=== PATIENT | male | born 1980 | race Caucasian/White ===

== ENCOUNTER 2018-12-04 16:09 | Emergency (ER) | payer SELFPAY ==
[~2018-12-04] VITALS: Ht 172.7 cm; Wt 113.9 kg
[2018-12-04 16:15] VITALS: BP 145/74; PULSE 103; RESP 18; Ht 172.7 cm; Wt 113.9 kg
[2018-12-04] MEDS ORDERED: TRIA15CR55 TOP (20:11)
[2018-12-04] MEDS ORDERED: NAPR-985 PO (20:11)
--- NOTE | 2018-12-04 20:34 | ERD ---
ER Documentation Chief Complaint Chief Complaint left ankle and foot pain x 1 month HPI 38-year-old male presents to the emergency department complaining of constant, moderate to severe left heel and ankle pain which is worse with walking starting 1 month ago. He went to [facility] emergency department 4 days ago and had x- rays of the left foot and left ankle which showed "bone spurs". He states there were no fractures noted. He has tried no medication for relief of symptoms. He denies any other symptoms or injuries at this time. ROS All systems reviewed and are negative except as per history of present illness. Medications Home Meds Active Scripts Triamcinolone Acetonide (Triamcinolone Acetonide) 0.1% - 15 Gm Cream.gm., 1 APPLIC TOP BID, #1 TUB Prov:YOANDY ROSAS PA-C 12/04/18 Naproxen* (Naprosyn*) 500 Mg Tablet, 500 MG PO BID PRN for PAIN AND/OR INFLAMMA TION, #30 TAB Prov:YOANDY ROSAS PA-C 12/04/18 PMhx/Soc Medical and Surgical Hx: pt denies Medical Hx, pt denies Surgical Hx Hx Alcohol Use: No Hx Substance Use: No Hx Tobacco Use: No Smoking Status: Never smoker FmHx Family History: No diabetes Physical Exam Vitals Vital Signs Date Temp Pulse Resp B/P (MAP) Pulse Ox O2 O2 Flow FiO2 Time Delivery Rate 12/04/18 97.8 103 18 145/74 96 16:15 (97) Physical Exam Const: No acute distress Head: Atraumatic Eyes: Normal Conjunctiva ENT: Normal External Ears, Nose and Mouth. Neck: Full range of motion. No meningismus. Resp: No respiratory distress. Skin: No petechiae or rashes Ext: Macular erythematous appearing rash noted to the plantar surface of the left foot. Tenderness palpation of the left heel. No obvious deformities. Patient is neurovascularly intact to the left lower extremity. Full range of motion of the left ankle. No open fractures noted. Neur: Awake and alert Psych: Normal Mood and Affect Procedures/MDM 38-year-old male presents to the emergency department with signs and symptoms most consistent with left foot pain secondary to rash and bone spurs. No indication for repeat x-rays at this time as they were completed 4 days ago at [facility] emergency department. Patient will be given prescriptions to treat his symptoms as an outpatient. He was advised to have close podiatry follow-up and return to the department immediately for any new or worsening or concerning symptoms. He understands and agrees with plan and return precautions. Clari ent's blood pressure was elevated (>120/80) but appears stable without evidence of hypertension emergency or urgency. The patient is to follow-up and pursue outpatient monitoring and therapy with their primary care physician within 1 week and return immediately if they have any new, worsening, or concerning symptoms. Departure Diagnosis: Primary Impression: Left foot pain Condition: Fair Patient Instructions: Heel Spur Referrals: JERICA TOM RONALD J. DPM [place], THOMAS FRANCIS ESPENSEN, ERIC H. [facility] YOU HAVE RECEIVED A MEDICAL SCREENING EXAM AND THE RESULTS INDICATE THAT YOU DO NOT HAVE A CONDITION THAT REQUIRES URGENT TREATMENT IN THE EMERGENCY DEPARTMENT. FURTHER EVALUATION AND TREATMENT OF YOUR CONDITION CAN WAIT UNTIL YOU ARE SEEN IN YOUR DOCTORS OFFICE WITHIN THE NEXT 1-2 DAYS. IT IS YOUR RESPONSIBILITY TO MAKE AN APPOINTMENT FOR FOLOW-UP CARE. IF YOU HAVE A PRIMARY DOCTOR --you should call your primary doctor and schedule an appointment IF YOU DO NOT HAVE A PRIMARY DOCTOR YOU CAN CALL OUR PHYSICIAN REFERRAL HOTLINE AT IF YOU CAN NOT AFFORD TO SEE A PHYSICIAN YOU CAN CHOSE FROM THE FOLLOWING [facility] [address] [facility] [facility] [address] [facility] [facility] [address] [facility]. [facility] [address] [facility] [place] [address] [facility]. [facility] [address] Additional Instructions: SPECIALIST: YOU HAVE A MEDICAL CONDITION WHICH REQUIRES YOU TO SEE A S PECIALIST WITHIN THE NEXT 1-2 DAYS. PLEASE FOLLOW UP WITH YOUR PRIMARY PHYSICIAN FOR REFFERAL.IF YOU DO NOT HAVE A PRIMARY CARE PHYSICIAN AND/OR YOU CAN NOT AFFORD TO SEE A PHYSICIAN THE FOLLOWING RESOURCES HAVE BEEN SUPPLIED TO YOU. IT IS YOUR RESPONSIBILITY TO BE SEEN BY THE SPECIALIST: PODIATRY YOANDY ROSAS PA-C Dec 04, 2018 20:34
== END 2018-12-04 20:19 | disposition home or self-care (01) ==
LOC: FTE 16:09
DX: M79.672 Pain in left foot (principal)
CPT/HCPCS: 99283